=== PATIENT | female | born 1965 | race American Indian/Alaskan Native ===

== ENCOUNTER 2018-08-29 19:04 | Emergency (ER) | payer OTHER ==
[2018-08-29] MEDS ORDERED: IBUPROFEN PO ONE (19:48)
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
[2018-08-29 21:45] VITALS: BP 127/78
[2018-08-29] MEDS ORDERED: NORCO 5/325 PO ONE (21:53)
[2018-08-29] MEDS ORDERED: NORCO 5/325 ONE (21:56)
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
== END 2018-08-29 23:30 | disposition home or self-care (01) ==
LOC: ED 19:04
DX: M62.838 Other muscle spasm (principal); M25.512 Pain in left shoulder; V49.49XA Driver injured in collision with other motor vehicles in traffic accident, initial encounter; Y93.89 Activity, other specified; Y92.89 Other specified places as the place of occurrence of the external cause; Y99.8 Other external cause status
CPT/HCPCS: 71046; 72040